=== PATIENT | male | born 1980 | race Caucasian/White ===

== ENCOUNTER 2016-09-12 10:17 | Emergency (ER) | payer OTHER ==
[~2016-09-12] VITALS: Ht 162.6 cm; Wt 87.0 kg
[2016-09-12 10:24] VITALS: Ht 162.6 cm; Wt 87.0 kg
--- NOTE | 2016-09-12 11:16 | ERD ---
ER Documentation Chief Complaint Date/Time DATE: 09/12/16 TIME: 11:07 Chief Complaint nausea, back,arm tingling, chest disconfort intermittent since last HPI Patient is a 36-year-old male with PMHx of DM, HTN who presents to the emergency department with multiple concerns including back pain, arm tingling, chest discomfort and palpitations. Patient states that his symptoms started approximately 4 days ago. Patient states that he woke up feeling palpitations, 7 hours ago. Patient states that palpitations lasted a few seconds and occurred approximately 6 times throughout the day. Patient states since then he has had some left-sided chest discomfort but denies any pain. The discomfort is intermittent in nature, denies pain with exertion. He states denies that it is throbbing or sharp in nature. Patient states that is localized in the left chest and does not radiate. Patient denies any shortness of breath. 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 Patient reports intermittent nausea but denies any vomiting. Patient denies any fever, chills, abdominal pain, unilateral weakness , slurred speech. Patient denies any history of recent surgery, unilateral leg swelling, recent air travel or prolonged sitting. Of note, patient reported not taking his BP or HLD medications starting beginning of this year given that he was trying "to eat healthy and exercise more." ROS All systems reviewed and are negative except as per history of present illness. PMhx/Soc History of Surgery: No Anesthesia Reaction: No Hx Neurological Disorder: No Hx Cardiac Disorders: No Hx Miscellaneous Medical Probl: Yes (DM, HLD) Hx Alcohol Use: No Hx Substance Use: No Hx Tobacco Use: No FmHx Family History: diabetes, No coronary disease Physical Exam Vitals Vital Signs Date Time Temp Pulse Resp B/P Pulse Ox O2 Delivery O2 Flow Rate FiO2 09/12/16 10:24 98.8 80 22 168/93 99 Physical Exam GENERAL: Well-developed, well-nourished male. Appears in no acute distress. Appears to be in no acute respiratory distress. Speaking in full sentences. HEAD: Normocephalic, atraumatic. No deformities or ecchymosis. EYE: Pupils equal, round, and reactive to light. EOMs intact. No conjunctival erythema. No scleral icterus. No eye discharge. ENT: External ear without any masses or tenderness. Auditory canals clear bilaterally. TM visualized bilaterally, non-erythematous, non-bulging. Nasal mucosa pink with no discharge. Oropharynx is pink without any tonsillar erythema or exudates. No uvula deviation. No kissing tonsils. NECK: Supple. No lymphadenopathy or thyromegaly. No meningismus. No JVD. No bruits. Trachea midline. LUNG: Clear to auscultation bilaterally. No rhonchi, wheezing, rales or coarse breath sounds. HEART: Regular rate and rhythm. No murmurs, rubs or gallops. ABDOMEN: Soft, nontender, and nondistended. Positive bowel sounds in all four quadrants. No rebound tenderness, no guarding. (-) McBurney's point tenderness. No CVA tenderness. BACK: No midline tenderness. EXTREMITIES: Equal pulses bilaterally. No peripheral clubbing, cyanosis or edema. No unilateral leg swelling. NEUROLOGIC: Alert and oriented x3, cooperative. Mood and affect appropriate to situation. Cranial nerves II through XII are grossly intact. Normal speech. Motor exam: 5/5 strength in upper and lower extremities. Sensory exam: Sensation intact to light touch on all four extremities. Cerebellar function exam: Rapid alternating movements intact. No dysmetria on [id number]. Steady gait. No pronator drift. (-) Brudzinski sign. (-) Kernig's sign. SKIN: Normal color. Warm and dry. No rashes or lesions. Procedures/MDM ED COURSE: The patient was stable throughout ED course. I kept the patient and/or family informed of laboratory and diagnostic imaging results throughout the ED course. EKG: Read by Dr. Lozano, attending physician. EKG shows normal sinus rhythm at a rate of 71 bpm. No arrhythmias, acute ST elevations or T wave changes were noted. DIAGNOSTIC IMAGING: Read by radiologist. DIAGNOSTIC IMAGING REPORT Patient: JUSTINE FERRERA : 1980 Age: 36 Sex: M MR #: [id number] DOS: 09/12/16 1105 Ordering MD: MERT ZEPEDA PA-C Location: [facility] Room/Bed: PROCEDURE: XR Chest. CLINICAL INDICATION: Shortness of breath. TECHNIQUE: Single frontal view. COMPARISON: Chest pain and palpitations. FINDINGS: The lungs are clear. The heart size is normal. There is no pleural effusion. There is no pneumothorax. IMPRESSION: 1. Normal chest radiograph. RPTAT: QQ .Josué Morrissey MD, Date Time Electronically viewed and signed by .Josué Morrissey MD, MD on 09/12/2016 11:39 .R/ CC: MERT EZPEDA PA-C MEDICAL DECISION MAKING: This is a 36-year-old male who presents with multiple concerns including nausea , back pain, chest discomfort and intermittent palpitations x 4 days. Patient states that his palpations have now resolved. Patient reported increased stress recently. Vital signs were reviewed. Patient was afebrile. Patient was not hypoxic. Cardiac exam was normal. Lung exam was normal. EKG was within normal limits. Low suspicion for acute coronary syndrome, arrhythmia or pericarditis. CXR was within normal limits. Low suspicion for pneumothorax, pneumonia or pleural effusion. Full neuro exam was normal. Low suspicion for CVA or TIA. Given these findings, the patients presentation is most consistent with palpitations and chest pain of unknown etiology. DISCHARGE: At this time, patient is stable for discharge and outpatient management. I have instructed the patient to follow-up with his/her primary care physician in 1-2 days. If symptoms persist, patient may need to see a cardiology for further examinations and testing including stress test or 24 hour holter monitoring . I have instructed the patient to promptly return to the ER at any time for any new or worsening symptoms including increased increased pain, fever, nausea, vomiting, numbness, weakness, diaphoresis or LOC. The patient and/or family expressed understanding of and agreement with this plan. All questions were answered. Home care instructions were provided. Patients blood pressure was elevated (>120/80) but appears stable without evidence of hypertensive emergency, hypertensive urgency or end-organ failure. I had discussion with the patient about the risks of hypertension. I have advised the patient to follow up with his/her primary care physician for outpatient monitoring and treatment for hypertension in 2-3 days. I urged the patient to take his medications today and discuss any discontinuations of medications with his PCP prior to do so. I have instructed the patient to return to the ER for any new or worsening symptoms including chest pain, shortness of breath, headache, blurred vision, confusion, nausea, vomiting or LOC. Departure Diagnosis: Primary Impression: Chest discomfort Additional Impression: Palpitations Condition: Stable Patient Instructions: Palpitations Referrals: [facility] DAVID G ALVES, CARLOS M. MD ARORA, RAMESH K MD Additional Instructions: Call your primary care doctor TOMORROW for an appointment during the next 1-2 days.See the doctor sooner or return here if your condition worsens before your appointment time. 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 Patient may need stress test or 24 hour holter monitoring if symptoms persist. MERT ZEPEDA PA-C Sep 12, 2016 11:16
--- NOTE | 2016-09-12 11:39 | RADRPT ---
PROCEDURE: XR Chest. CLINICAL INDICATION: Shortness of breath. TECHNIQUE: Single frontal view. COMPARISON: Chest pain and palpitations. FINDINGS: The lungs are clear. The heart size is normal. There is no pleural effusion. There is no pneumothorax. IMPRESSION: 1. Normal chest radiograph. RPTAT: QQ .Josué Morrissey MD, MD Date Time Electronically viewed and signed by .Josué Morrissey MD, MD on 09/12/2016 11:39 .R/
== END 2016-09-12 12:34 | disposition home or self-care (01) ==
LOC: FTE 10:17
DX: R07.89 Other chest pain (principal); E11.9 Type 2 diabetes mellitus without complications; I10 Essential (primary) hypertension; R00.2 Palpitations
CPT/HCPCS: 71010; 93005

== ENCOUNTER 2018-03-28 05:50 | Emergency (ER) | END 2018-03-28 07:32 | disposition home or self-care (01) ==